=== PATIENT | female | born 1965 | race Caucasian/White ===

== ENCOUNTER → 2024-09-13 | Outpatient (CLI) | payer MEDICAID, SELFPAY ==
[2024-09-13 12:41] LABS: Erythrocyte Sedimentation Rate 23 mm/hr (0-30)
[2024-09-16 13:08] LABS: ANTINUCLEAR ANTIBODIES DIRECT Negative (Negative)
== END | disposition home or self-care (01) ==
LOC: MTLAB 09:35
PROVIDERS: PCP Nurse Practitioner Family
DX: I63.511 Cerebral infarction due to unspecified occlusion or stenosis of right middle cerebral artery (principal)
CPT/HCPCS: 36415; 81240; 81241; 85300; 85301; 85302; 85303; 85305; 85306; 85652; 86038; 86140; 86147; 86160; 86162; 86225; 86235